=== PATIENT | male | born 1955 | race Hispanic/Latino ===

== ENCOUNTER 2024-10-27 07:08 | Day surgery (SDC) | payer OTHER ==
[2024-10-25 08:27] LABS: IMMATURE GRANULOCYTE ABSOLUTE 0.03 K/uL (0-1); NUCLEATED RED BLOOD CELLS 0.0 % (0.0-0.19); PLATELET COUNT (AUTO) 188 K/uL (130-400); RED BLOOD CELL COUNT(AUTO) 4.59 MIL/uL (4.50-6.20); RED CELL DISTRIBUTION WIDTH 14.0 % (11.0-15.5); WHITE BLOOD COUNT (AUTO) 6.6 K/uL (4.8-10.8)
[2024-10-25 08:35] LABS: ADD UA MICROSCOPIC YES; APPEARANCE,URINE CLEAR (CLEAR); GLUCOSE, URINE (UA) >=1000 mg/dL (NEGATIVE); LEUKOCYTE ESTERASE ,URINE NEGATIVE Leu/uL (NEGATIVE); NITRATE,URINE NEGATIVE (NEGATIVE); OCCULT BLOOD,URINE NEGATIVE (NEGATIVE); SQUAMOUS EPITHELIAL CELL,UR RARE /HPF (0-2)
[2024-10-25 08:36] LABS: CREATININE 1.4 mg/dL (0.5-1.3); GLOMERULAR FILTR. RATE CALC 54.0 mL/min (>90); GLUCOSE,RANDOM 112.0 mg/dL (70-105); SODIUM SERUM 139.0 mmol/L (136-145); UREA NITROGEN, BLOOD 18.0 mg/dL (7-18)
[2024-10-25 08:37] LABS: INR 1.03 (0.85-1.15)
--- NOTE | 2024-10-25 08:40 | EKG ---
[facility] Test Date: 2024-10-25 Test Time: 08:07:56 Pat Name: CODY SAM Department: [facility] Room: Gender: M [employer] Operator: [id number] : 1955 Requested By: RISA BRODERICK Order Number: [id number] Reading MD: Tano Finch Measurements Intervals [place] Rate: 55 P: 27 KS: 204 QRS: -6 QRSD: 110 T: 21 QT: 446 QTc: 426 Interpretive Statements Sinus bradycardia Compared to ECG 10/17/2024 11:32:55 No significant changes Electronically Signed On 10-25-2024 22:12:29 CDT by Tano Finch Please click the below link to view image of tracing.
[2024-10-25 09:04] VITALS: BP 140/65; PULSE 105; RESP 17; TEMP 98.3
--- NOTE | 2024-10-26 09:05 | NUR ---
RE: LABS REPORTED BMP RESULTS TO EVELYN KAPLAN NP. NO NEW ORDERS RECEIVED.
[~2024-10-27] VITALS: Ht 193 cm; Wt 116.0 kg
[2024-10-27] VITALS (9 sets, daily range): BP systolic 96–157; BP diastolic 47–66; PULSE 52–63; RESP 11–18; TEMP 97.2–98.3
[~2024-10-27 07:08] MED LIST: ACET-66 PO; AMLO2.5T4 PO; ASPI-1443 PO; ATOR10 PO; DUTA0.5C37 PO; EMPA1TAB7 PO; INSU300I SQ; ISOS30TA92 PO; LINA145C PO; LOSA1TAB54 PO; PREG150C47 PO; TAMS-55 PO; TIRZ15PE SQ
[2024-10-27] MEDS: 0.9%NACL 1000ML 1,000 ML IV SCH (08:19)
[2024-10-27] MEDS ORDERED: IOHEXOL 350 MG/ML 100ML INFUS..BTL IV ONE (10:28)
[2024-10-27] MEDS ORDERED: LIDOCAINE HCL 400MG/20ML VIAL ONE (10:28)
[2024-10-27] MEDS ORDERED: HEParin-NS 1,000 UNIT/500 ML 1,000 ML IV ONE (10:29)
[2024-10-27] MEDS ORDERED: NITROGLYCERIN 50MG VIAL ONE (10:29)
[2024-10-27] MEDS ORDERED: MIDAZOLAM HCL 1 MG/ML 2ML VIAL ONE ×2 (10:43→10:55)
[2024-10-27] MEDS ORDERED: ATROPINE 1MG SYG IVP ONE (10:45)
[2024-10-27] MEDS ORDERED: DEXTROSE 50%-WATER 50 ML DISP.SYRIN IV PRN (12:30)
[2024-10-27] MEDS ORDERED: 0.9%NACL 1000ML 1,000 ML IV SCH (12:30)
[2024-10-27] MEDS ORDERED: GLUCAGON 1MG KIT 1 MG ML IM PRN (12:30)
--- NOTE | 2024-10-27 12:44 | PRN ---
PROCEDURE NOTE Indications: Atypical chest pain Abnormal coronary CTA Low Normal left ventricle systolic function (LVEF 50-55%) Abdominal aortic aneurysm, 3.5cm Procedures: Coronary angiogram, femoral angiogram Introduction: After informed written consent was obtained, the patient was brought to the Catheterization Lab in the usual fasting state. Following sterile prep and drape, a time out was performed, then moderate sedation was administered, 1mg of Versed and 50mcg of Fentanyl, then 1% Lidocaine was infiltrated into the right femoral groin. Using a Modified Seldinger technique, a 6Fr Sheath was inserted into the right common femoral artery. While under fluoroscopic guidance, diagnostic coronary catheters were advanced over a wire into the central circulation where they were aspirated, flushed and placed to pressure monitoring, once the wire was removed. Coronary Angio: The left and right coronary arteries were engaged with appropriate catheters and angiography was performed under continuous pressure monitoring. Cardiac Findings: Right dominant system LM: Large caliber vessel with mild luminal irregularities. The vessel bifurcates into the LAD and LCX. LAD: Medium caliber vessel with 30-40% stenosis in the proximal and proximal mid LAD. There is a hemodynamically insignificant myocardial bridge in the mid LAD (the artery does not compress during diastole). BLANE 3 blood flow distally. Diagonal 1: Small caliber vessel with mild luminal irregularities LCx: Medium caliber vessel with 30% stenosis in the mid LCX. The rest of the vessel has mild luminal irregularities. High OM1: Medium caliber vessel with 40% stenosis in the ostial OM1 OM2: Small caliber vessel mild luminal irregularities OM3: Small caliber vessel mild luminal irregularities. RCA: Medium caliber vessel with diffuse 30% stenosis in the proximal and mid RCA. RPDA: Small caliber vessel with 30% stenosis in the ostial RPDA. RPLV: Small caliber vessel with mild luminal irregularities Medications given: Versed 1mg, Fentanyl 50mcg Coronary Intervention: None Complications: None Conscious Sedation Monitoring: Under my direct order and supervision, medication for moderate conscious sedation was administered by the nursing staff and the patients level of consciousness and physiological status was monitored by an independent trained nurse. Closure of Access Site: After the case completed the sheath was pulled and a 6Fr Angioseal was deployed in the right common femoral artery without complication. Conclusion: 1. Nonobstructive CAD 2. 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 False-positive coronary CTA (likely secondary to blooming artifact) 4. Atypical chest pain 5. Low normal left ventricle systolic function (LVEF 50-55%) 6. Abdominal aortic aneurysm Recommendation: 1. Continue goal-directed medical therapy 2. 4 hours of bedrest 3. Groin precautions 4. Start NS at 100 mL/hour x3 hours. 5. Okay to DC, once bed rest is complete, and the right groin is soft, and free of bruising, bleeding, NR hematoma formation. 6. No driving for the next 48 hours. 7. No heavy lifting or strenuous exercise for the next 2 weeks. 8. Please have the patient follow up with Dr. Maurer in 1-2 weeks. RISA MAURER MD Oct 27, 2024 12:44
--- NOTE | 2024-10-27 14:28 | NUR ---
Pt has remained stable with VS wnl SB remains with bedside monitor intact. Right groin site clean dry and intact. No sign or bleeding, bruising or hematoma. Pedal pulses intact to ble's. Ate 90% of lunch and is having water as desired. NS remains per orders to patent PIV. Family at bedside appearing supportive. Reported off in full to CLEVE Garcia
== END 2024-10-27 16:16 | disposition home or self-care (01) ==
LOC: DAH 07:08
PROVIDERS: ATTEND Internal Medicine Cardiovascular Disease
DX: R07.89 Other chest pain (principal); R93.1 Abnormal findings on diagnostic imaging of heart and coronary circulation; I25.118 Atherosclerotic heart disease of native coronary artery with other forms of angina pectoris; I71.40 Abdominal aortic aneurysm, without rupture, unspecified; I10 Essential (primary) hypertension; E78.5 Hyperlipidemia, unspecified; E11.9 Type 2 diabetes mellitus without complications; F32.A Depression, unspecified; N40.0 Benign prostatic hyperplasia without lower urinary tract symptoms; Z98.890 Other specified postprocedural states
CPT/HCPCS: 80048; 83880; 85025; 85610; 85730; 81001; 36415; 93005; 93454; 99156; 99157; 82948; C1769; C1894 ×3; C1760; Q9965; J3010; J3490 ×3; J1644 ×2; J2250; Q9967; A4215; A4222; A4221; A4663; A4216; A4606; A4223 ×3; 96360; 96361; J0461